=== PATIENT | male | born 1980 | race Caucasian/White ===

== ENCOUNTER 2025-08-18 13:58 | Inpatient (IN) | payer BC ==
[2025-08-18 14:28] LABS: #Basophils 0.03 10x3/uL (0.0-0.2); #Eosinophils 0.03 10x3/uL (0.0-0.5); #Monocytes 1.02 10x3/uL (0.0-1.1); #Neutrophils 22.42 10x3/uL (1.5-8.4); %Basophils 0.1 % (0.0-2.0); %Eosinophils 0.1 % (0.0-6.0); %Lymphocytes 4.2 % (18.0-47.0); %Monocytes 4.1 % (0.0-10.0); %Neutrophils 91.0 % (40.0-75.0); Hematocrit 48.1 % (38.8-50.0); Hemoglobin 16.3 g/dL (13.5-17.5); Mean Corpuscular Hemoglobin 30.0 pg (27.0-33.0); Mean Corpuscular Volume 88.6 fL (81.2-95.1); Red Blood Cell (RBC) Count 5.43 10x6/uL (4.32-5.72); White Blood Cell (WBC) Count 24.66 10x3/uL (3.5-10.5)
[2025-08-18 14:32] LABS: Platelet Count 344 10x3/uL (150-450)
[2025-08-18] MEDS ORDERED: HYDROmorphone 0.5 MG/0.5 ML SYRINGE ONE (14:41)
[2025-08-18 14:42] LABS: ALT (SGPT) 29 U/L (Less than 45); AST (SGOT) 40 U/L (11-34); Albumin 3.7 g/dL (3.1-4.5); Alkaline Phosphatase 79 U/L (40-110); Anion Gap 13 mmol/L (10-20); BUN (Urea Nitrogen) 12 mg/dL (8.9-20.6); Bilirubin, Total 0.3 mg/dL (0.3-1.2); Calc. Creatinine Clearance 0 mL/min (70-130); Calcium 8.3 mg/dL (7.8-10.44); Carbon Dioxide 18 mmol/L (22-29); Chloride 112 mmol/L (98-107); Globulin 2.7 g/dL (2.4-3.5); Glucose 100 mg/dL (70-105); Potassium 4.1 mmol/L (3.5-5.1); Sodium 139 mmol/L (136-145)
[2025-08-18 14:47] LABS: Fibrinogen 229.0 mg/dL (220-504); INR-International Normal Ratio 1.8; PTT 28.1 sec (22.0-33.0); Prothrombin Time 18.5 sec (9.5-12.1)
[2025-08-18] MEDS ORDERED: Ondansetron PF 4 MG/2 ML Vial IVP PRN ×2 (16:00→18:32)
[2025-08-18] MEDS ORDERED: Acetaminophen 325 MG TAB PO PRN (16:00)
[2025-08-18 16:49] VITALS: BMI 24.2
[2025-08-18] MEDS: ANTIVENIN,CROTALIDAE (ANAVIP) 4 EACH in Sodium Chloride 0.9% 250 ML 250 ML IVPB SCH ×2 (16:51→23:33)
[2025-08-18 17:06] LABS: Fibrinogen 310.0 mg/dL (220-504); INR-International Normal Ratio 1.0; PTT 24.5 sec (22.0-33.0); Prothrombin Time 11.0 sec (9.5-12.1)
[2025-08-18 17:17] LABS: Hematocrit 47.6 % (38.8-50.0); Hemoglobin 16.0 g/dL (13.5-17.5); Mean Corpuscular Hemoglobin 29.8 pg (27.0-33.0); Mean Corpuscular Volume 88.6 fL (81.2-95.1); Platelet Count 332 10x3/uL (150-450); Red Blood Cell (RBC) Count 5.37 10x6/uL (4.32-5.72); White Blood Cell (WBC) Count 25.63 10x3/uL (3.5-10.5)
[2025-08-18] MEDS: HYDROmorphone 0.5 MG/0.5 ML SYRINGE SLOW IVP SCH (17:35)
[2025-08-18] MEDS ORDERED: diphenhydrAMINE 50 MG/ML VIAL IM PRN (18:32)
[2025-08-18] MEDS ORDERED: diphenhydrAMINE 50 MG/ML VIAL IVP PRN (18:32)
[2025-08-18] MEDS ORDERED: diphenhydrAMINE 25 MG CAP PO PRN (18:32)
[2025-08-18] MEDS ORDERED: Communication Order-Pharmacy FS SCH (18:45)
[2025-08-18 18:47] LABS: MDiff Complete? YES; Platelet Adequacy Comment Appears Adequate; RBC Morphology Within Normal Limits
[2025-08-18] MEDS: fentaNYL Citrate/PF 55 ML IV SCH (19:23)
[2025-08-19 01:42] LABS: #Basophils Less than 0.03 10x3/uL (0.0-0.2); #Eosinophils Less than 0.03 10x3/uL (0.0-0.5); #Monocytes 0.77 10x3/uL (0.0-1.1); #Neutrophils 10.84 10x3/uL (1.5-8.4); %Basophils 0.1 % (0.0-2.0); %Eosinophils 0.1 % (0.0-6.0); %Lymphocytes 13.0 % (18.0-47.0); %Monocytes 5.7 % (0.0-10.0); %Neutrophils 80.8 % (40.0-75.0); Hematocrit 41.6 % (38.8-50.0); Hemoglobin 14.2 g/dL (13.5-17.5); Mean Corpuscular Hemoglobin 30.0 pg (27.0-33.0); Mean Corpuscular Volume 87.9 fL (81.2-95.1); Platelet Count 290 10x3/uL (150-450); Red Blood Cell (RBC) Count 4.73 10x6/uL (4.32-5.72); White Blood Cell (WBC) Count 13.42 10x3/uL (3.5-10.5)
[2025-08-19] MEDS ORDERED: Potassium Chloride 20 MEQ in Premix 1 BAG IVPB PRN (01:45)
[2025-08-19] MEDS ORDERED: PHOS-NAK 1 PKT PACK PO PRN (01:45)
[2025-08-19 01:55] LABS: Fibrinogen 310.0 mg/dL (220-504); INR-International Normal Ratio 1.0; PTT 28.9 sec (22.0-33.0); Prothrombin Time 11.2 sec (9.5-12.1)
[2025-08-19 01:58] LABS: ALT (SGPT) 19 U/L (Less than 45); AST (SGOT) 15 U/L (11-34); Albumin 3.0 g/dL (3.1-4.5); Alkaline Phosphatase 53 U/L (40-110); Anion Gap 10 mmol/L (10-20); BUN (Urea Nitrogen) 8 mg/dL (8.9-20.6); Bilirubin, Total 0.5 mg/dL (0.3-1.2); Calc. Creatinine Clearance 146 mL/min (70-130); Calcium 7.3 mg/dL (7.8-10.44); Carbon Dioxide 22 mmol/L (22-29); Chloride 108 mmol/L (98-107); Globulin 2.1 g/dL (2.4-3.5); Glucose 112 mg/dL (70-105); Magnesium 1.5 mg/dL (1.6-2.6); Potassium 3.8 mmol/L (3.5-5.1); Sodium 136 mmol/L (136-145)
[2025-08-19] MEDS: Magnesium Sulfate In Water 4 GM in Premix 1 BAG IVPB PRN (02:06)
[2025-08-19] MEDS: Mupirocin 1 GM TUBE TP SCH (09:00)
[2025-08-20 04:47] LABS: #Basophils Less than 0.03 10x3/uL (0.0-0.2); #Eosinophils 0.03 10x3/uL (0.0-0.5); #Monocytes 0.89 10x3/uL (0.0-1.1); #Neutrophils 9.60 10x3/uL (1.5-8.4); %Basophils 0.2 % (0.0-2.0); %Eosinophils 0.3 % (0.0-6.0); %Lymphocytes 10.3 % (18.0-47.0); %Monocytes 7.5 % (0.0-10.0); %Neutrophils 81.3 % (40.0-75.0); Hematocrit 42.2 % (38.8-50.0); Hemoglobin 14.5 g/dL (13.5-17.5); Mean Corpuscular Hemoglobin 30.1 pg (27.0-33.0); Mean Corpuscular Volume 87.6 fL (81.2-95.1); Platelet Count 281 10x3/uL (150-450); Red Blood Cell (RBC) Count 4.82 10x6/uL (4.32-5.72); White Blood Cell (WBC) Count 11.80 10x3/uL (3.5-10.5)
[2025-08-20 05:04] LABS: Fibrinogen 494.0 mg/dL (220-504); INR-International Normal Ratio 1.0; PTT 29.9 sec (22.0-33.0); Prothrombin Time 11.2 sec (9.5-12.1)
[2025-08-20 05:21] LABS: Anion Gap 10 mmol/L (10-20); BUN (Urea Nitrogen) 6 mg/dL (8.9-20.6); CK (CPK) 69 U/L (30-200); Calc. Creatinine Clearance 144 mL/min (70-130); Calcium 8.4 mg/dL (7.8-10.44); Carbon Dioxide 24 mmol/L (22-29); Chloride 105 mmol/L (98-107); Glucose 117 mg/dL (70-105); Magnesium 1.8 mg/dL (1.6-2.6); Potassium 4.3 mmol/L (3.5-5.1); Sodium 135 mmol/L (136-145)
[2025-08-20] MEDS ORDERED: oxyCODONE 5 MG TAB PO PRN ×2 (16:03)
[2025-08-21 04:36] LABS: #Basophils Less than 0.03 10x3/uL (0.0-0.2); #Eosinophils 0.07 10x3/uL (0.0-0.5); #Monocytes 0.80 10x3/uL (0.0-1.1); #Neutrophils 7.66 10x3/uL (1.5-8.4); %Basophils 0.2 % (0.0-2.0); %Eosinophils 0.7 % (0.0-6.0); %Lymphocytes 15.9 % (18.0-47.0); %Monocytes 7.9 % (0.0-10.0); %Neutrophils 75.1 % (40.0-75.0); Hematocrit 44.6 % (38.8-50.0); Hemoglobin 15.5 g/dL (13.5-17.5); Mean Corpuscular Hemoglobin 29.9 pg (27.0-33.0); Mean Corpuscular Volume 86.1 fL (81.2-95.1); Platelet Count 290 10x3/uL (150-450); Red Blood Cell (RBC) Count 5.18 10x6/uL (4.32-5.72); White Blood Cell (WBC) Count 10.19 10x3/uL (3.5-10.5)
[2025-08-21 04:43] LABS: INR-International Normal Ratio 1.0; PTT 28.5 sec (22.0-33.0); Prothrombin Time 10.9 sec (9.5-12.1)
[2025-08-21 04:53] LABS: Anion Gap 9 mmol/L (10-20); BUN (Urea Nitrogen) 8 mg/dL (8.9-20.6); Calc. Creatinine Clearance 148 mL/min (70-130); Calcium 9.1 mg/dL (7.8-10.44); Carbon Dioxide 24 mmol/L (22-29); Chloride 106 mmol/L (98-107); Glucose 109 mg/dL (70-105); Magnesium 1.9 mg/dL (1.6-2.6); Potassium 4.1 mmol/L (3.5-5.1); Sodium 135 mmol/L (136-145)
[2025-08-21 05:14] LABS: Fibrinogen 705.0 mg/dL (220-504)
[2025-08-21 10:52] VITALS: BP 132/73; TEMP 98.3
== END 2025-08-21 10:52 | disposition home or self-care (01) | DRG 918 ==
LOC: CSHERS 13:58 → CSHICU 15:41
PROVIDERS: ADMIT Internal Medicine; ATTEND Family Medicine
DX: T63.001A Toxic effect of unspecified snake venom, accidental (unintentional), initial encounter (principal); L03.114 Cellulitis of left upper limb; F17.210 Nicotine dependence, cigarettes, uncomplicated; F12.10 Cannabis abuse, uncomplicated; D72.829 Elevated white blood cell count, unspecified
CPT/HCPCS: 36415; 80048; 80053; 82550; 83735; 84100; 85025; 85384; 85610; 85730; 96374; 96375; J0841; J1171; J3475; J7030; J7050